=== PATIENT | female | born 1980 | race Caucasian/White ===

== ENCOUNTER 2017-10-07 05:21 | Inpatient (IN) | payer OTHER ==
[~2017-10-07] VITALS: Ht 164 cm; Wt 66.7 kg
[2017-10-07] MEDS ORDERED: RINGERS SOLUTION,LACTATED 1,000 ML IV ONE (06:03)
[2017-10-07] MEDS ORDERED: METOCLOPRAMIDE HCL 5 MG/ML 2 ML VIAL IVP PRN (07:00)
[2017-10-07] MEDS ORDERED: CITRIC ACID/SODIUM CITRATE 30 ML SOLUTION UDCUP PO PRN (07:00)
[2017-10-07 07:02] VITALS: BP 118/79
[2017-10-07] MEDS: BETAMETHASONE SOLUSPAN 6 MG/ML 5 ML VIAL IM SCH ×2 (07:06→18:25)
[2017-10-07] MEDS: RINGERS SOLUTION,LACTATED 1,000 ML IV SCH ×3 (07:07→17:55)
[2017-10-07] MEDS: AMPICILLIN SODIUM 2 GM/NS 100 ML IV SCH ×3 (07:08→18:23)
[2017-10-07 07:20] LABS: BASOPHILS % (AUTO) 0.4 % (0.0-2.0); EOSINOPHILS % (AUTO) 0.7 % (1.0-6.0); HEMATOCRIT 30.6 % (36-46); HEMOGLOBIN 10.4 g/dL (12.0-16.0); LYMPHOCYTES # (AUTO) 1.4 K/uL (1.0-4.8); LYMPHOCYTES % (AUTO) 16.4 % (22.0-44.0); MEAN CORPUSCULAR HEMOGLOBIN 28.9 pg (26.0-34.0); MEAN CORPUSCULAR VOLUME 85 fL (80-100); MONOCYTES # (AUTO) 0.4 K/uL (0.1-1.0); MONOCYTES % (AUTO) 5.4 % (2.0-9.0); NEUTROPHILS # (AUTO) 6.4 K/uL (1.8-7.7); NEUTROPHILS % (AUTO) 77.1 % (40.0-70.0); PLATELET COUNT (AUTO)-OB 206 K/uL (150-450); RED BLOOD CELL COUNT(AUTO) 3.59 MIL/uL (4.00-5.20); RED CELL DISTRIBUTION WIDTH 13.2 % (11.5-14.5)
[2017-10-07] MEDS ORDERED: MAGNESIUM SULFATE 2 GM/WATER 50 ML IV SCH (08:00)
[2017-10-07] MEDS ORDERED: NIFEdipine 10 MG CAPSULE PO ONE (08:00)
[2017-10-07] MEDS ORDERED: MAGNESIUM SULFATE 4 GM/WATER 100 ML IV ONE (08:15)
[2017-10-07] MEDS ORDERED: MAGNESIUM SULFATE 500 ML IV ONE (09:24)
[2017-10-07] MEDS ORDERED: CALCIUM GLUCONATE 100 MG/ML 10 ML IVP PRN (09:30)
[2017-10-07] MEDS ORDERED: MAGNESIUM SULFATE 500 ML IV SCH ×2 (09:30→10:00)
[2017-10-07] MEDS ORDERED: MAGNESIUM SULFATE 1 GM in DEXTROSE 5%-WATER 50 ML IV ONE (09:45)
[2017-10-07] MEDS ORDERED: AZITHROMYCIN 500 MG/NS 250 ML IV ONE (11:00)
[2017-10-08] MEDS: AMPICILLIN SODIUM 2 GM/NS 100 ML IV SCH ×2 (00:15→05:56)
[2017-10-08] MEDS: RINGERS SOLUTION,LACTATED 1,000 ML IV SCH ×3 (05:16→19:56)
[2017-10-08] MEDS ORDERED: CeFAZolin 2 GM/DEXTROSE 50 ML IV ONE (05:48)
[2017-10-08] MEDS ORDERED: MORPHINE SULFATE/PF 1 MG/ML 10 ML AMP ONE (05:49)
[2017-10-08] MEDS ORDERED: FentaNYL CITRATE-PF 100 MCG/2 ML VIAL ONE (05:49)
[2017-10-08] MEDS ORDERED: GUM MASTIC/STORAX/MSAL/ALCOHOL LIQUID 0.67 ML VIAL TP ONE (07:28)
[2017-10-08] MEDS ORDERED: NALOXONE HCL 0.4 MG/ML VIAL IVP PRN (07:45)
[2017-10-08] MEDS ORDERED: KETOROLAC TROMETHAMINE 30 MG/ML VIAL IVP ONE (07:45)
[2017-10-08] MEDS ORDERED: ONDANSETRON HCL 4 MG/2 ML VIAL IVP PRN ×2 (07:45)
[2017-10-08] MEDS ORDERED: NALBUPHINE HCL 10 MG/ML VIAL IVP PRN ×3 (07:45)
[2017-10-08] MEDS ORDERED: FentaNYL CITRATE-PF 100 MCG/2 ML VIAL IVP PRN ×5 (07:45)
[2017-10-08] MEDS ORDERED: DEXAMETHASONE SOD PHOS 4 MG/ML VIAL IVP PRN (07:45)
[2017-10-08] MEDS ORDERED: MEPERIDINE HCL/PF 25 MG/0.5 ML AMP IVP PRN (07:45)
[2017-10-08] MEDS ORDERED: DiphenhydrAMINE HCL 50 MG/ML VIAL IVP PRN ×2 (07:45)
[2017-10-08] MEDS ORDERED: KETOROLAC TROMETHAMINE 30 MG/ML VIAL ONE (08:58)
[2017-10-08] MEDS ORDERED: OXYTOCIN 30 UNITS/LACT RINGERS 500 ML IV ONE (10:11)
[2017-10-08] MEDS ORDERED: LANOLIN 7 GM OINTMENT TP PRN (10:15)
[2017-10-08] MEDS: FentaNYL CITRATE-PF 100 MCG/2 ML VIAL IVP PRN (10:41)
[2017-10-08] MEDS ORDERED: AZITHROMYCIN 500 MG/NS 250 ML IV SCH (11:00)
[2017-10-08] MEDS: KETOROLAC TROMETHAMINE 30 MG/ML VIAL IVP SCH ×2 (16:14→21:26)
[2017-10-08] MEDS: MAGNESIUM HYDROXIDE SUSPENSION 30 ML UDCUP PO SCH (21:08)
[2017-10-09] MEDS: FentaNYL CITRATE-PF 100 MCG/2 ML VIAL IVP PRN (04:35)
[2017-10-09] MEDS: RINGERS SOLUTION,LACTATED 1,000 ML IV SCH (04:47)
[2017-10-09] MEDS ORDERED: DEXAMETHASONE SOD PHOS 4 MG/ML VIAL IVP ONE (05:20)
[2017-10-09] MEDS ORDERED: PHENYLEPHRINE HCL 10 MG/ML VIAL IVP ONE (05:20)
[2017-10-09] MEDS ORDERED: OXYTOCIN 10 UNITS/ML VIAL IM ONE (05:20)
[2017-10-09] MEDS ORDERED: EPHEDrine SULFATE 50 MG/ML VIAL IM ONE (05:20)
[2017-10-09] MEDS ORDERED: ONDANSETRON HCL 4 MG/2 ML VIAL IVP ONE (05:20)
[2017-10-09 06:31] LABS: BASOPHILS % (AUTO) 0.1 % (0.0-2.0); EOSINOPHILS % (AUTO) 0.1 % (1.0-6.0); HEMATOCRIT 21.4 % (36-46); HEMOGLOBIN 7.2 g/dL (12.0-16.0); LYMPHOCYTES # (AUTO) 1.3 K/uL (1.0-4.8); LYMPHOCYTES % (AUTO) 10.1 % (22.0-44.0); MEAN CORPUSCULAR HGB CONC 33.8 G/dL (31.0-37.0); MEAN CORPUSCULAR VOLUME 86 fL (80-100); MONOCYTES # (AUTO) 0.7 K/uL (0.1-1.0); MONOCYTES % (AUTO) 5.7 % (2.0-9.0); NEUTROPHILS # (AUTO) 10.7 K/uL (1.8-7.7); PLATELET COUNT (AUTO)-OB 171 K/uL (150-450); RED CELL DISTRIBUTION WIDTH 13.3 % (11.5-14.5)
[2017-10-09] MEDS: OxyCODONE HCL/ACETAMINOPHEN 5-325 MG TABLET PO PRN ×4 (07:49→20:47)
[2017-10-09] MEDS: SOD FERRIC GLUC COMPLX/SUCROSE 125 MG in SODIUM CHLORIDE 0.9% 100 ML IV SCH (08:25)
[2017-10-09] MEDS: MAGNESIUM HYDROXIDE SUSPENSION 30 ML UDCUP PO SCH ×2 (08:58→20:47)
[2017-10-09] MEDS: IBUPROFEN 800 MG TABLET PO PRN ×2 (08:59→15:56)
[2017-10-10] MEDS: IBUPROFEN 800 MG TABLET PO PRN ×2 (03:51→11:55)
[2017-10-10 06:17] LABS: BASOPHILS % (AUTO) 0.1 % (0.0-2.0); EOSINOPHILS % (AUTO) 0.8 % (1.0-6.0); HEMATOCRIT 21.6 % (36-46); HEMOGLOBIN 7.3 g/dL (12.0-16.0); LYMPHOCYTES % (AUTO) 16.6 % (22.0-44.0); MEAN CORPUSCULAR HEMOGLOBIN 28.8 pg (26.0-34.0); MEAN CORPUSCULAR HGB CONC 33.7 G/dL (31.0-37.0); MEAN CORPUSCULAR VOLUME 85 fL (80-100); MONOCYTES # (AUTO) 0.8 K/uL (0.1-1.0); MONOCYTES % (AUTO) 7.1 % (2.0-9.0); NEUTROPHILS % (AUTO) 75.4 % (40.0-70.0); PLATELET COUNT (AUTO)-OB 155 K/uL (150-450); RED BLOOD CELL COUNT(AUTO) 2.53 MIL/uL (4.00-5.20); RED CELL DISTRIBUTION WIDTH 13.3 % (11.5-14.5)
[2017-10-10] MEDS: SOD FERRIC GLUC COMPLX/SUCROSE 125 MG in SODIUM CHLORIDE 0.9% 100 ML IV SCH (07:29)
[2017-10-10] MEDS: OxyCODONE HCL/ACETAMINOPHEN 5-325 MG TABLET PO PRN ×3 (07:29→20:33)
[2017-10-10] MEDS: MAGNESIUM HYDROXIDE SUSPENSION 30 ML UDCUP PO SCH (11:56)
[2017-10-10] MEDS ORDERED: IBUP-2071 PO (20:58)
[2017-10-10] MEDS ORDERED: DSS100 PO (20:59)
[2017-10-10] MEDS ORDERED: FERR-89 PO (21:00)
[2017-10-10] MEDS ORDERED: PNV11TAB PO (21:00)
[2017-10-10] MEDS ORDERED: PERCT PO (21:04)
== END 2017-10-10 21:45 | disposition home or self-care (01) | DRG 765 ==
LOC: 4S 05:21 → OBSVTOIN 05:21 → 4S 10-08 20:57
PROVIDERS: ADMIT Obstetrics & Gynecology; ATTEND Obstetrics & Gynecology
PROC: 10D00Z1 Extraction of Products of Conception, Low, Open Approach (ICD-10-PCS; principal; 2017-10-08)
DX: O42.913 Preterm premature rupture of membranes, unspecified as to length of time between rupture and onset of labor, third trimester (principal); O60.14X0 Preterm labor third trimester with preterm delivery third trimester, not applicable or unspecified; O34.211 Maternal care for low transverse scar from previous cesarean delivery; Z37.0 Single live birth; Z3A.34 34 weeks gestation of pregnancy
CPT/HCPCS: 83735; 86850; 86900; 86901; 87081; J0290; J0456; J0610; J0690; J0702; J1100; J1885; J2370; J2405; J2590; J2765; J2916; J3010; J3475; J3490; J7050; J7060; J7120